=== PATIENT | female | born 1990 | race Caucasian/White ===

== ENCOUNTER → 2017-08-31 | Outpatient (CLI) | payer BC | END | disposition home or self-care (01) | LOC: LAB 11:25 → LAB SHORT 11:25 | DX: R07.0 Pain in throat (principal) | CPT/HCPCS: 87070 ==

== ENCOUNTER → 2018-05-11 | Outpatient (CLI) | payer BC ==
[2018-05-14 15:07] LABS: HPV 16 Negative (Negative); HPV 18 Negative (Negative); HPV OTHER HR TYPES Negative (Negative)
== END | disposition home or self-care (01) ==
LOC: LAB SHORT 11:49 → LAB 11:49
PROVIDERS: Nurse Practitioner Women's Health
DX: Z12.4 Encounter for screening for malignant neoplasm of cervix (principal)
CPT/HCPCS: 87624; G0123

== ENCOUNTER 2021-07-31 03:59 | Emergency (ER) | payer BC ==
[~2021-07-31] VITALS: Ht 149.9 cm; Wt 74.8 kg
[2021-07-31 04:24] LABS: BASOPHILS ABSOLUTE AUTO 0.03 K/mm3 (0.00-0.23); BASOPHILS PERCENT AUTO 0 % (0-2); EOSINOPHILS ABSOLUTE AUTO 0.01 K/mm3 (0.00-0.68); EOSINOPHILS PERCENT AUTO 0 % (0-6); Hematocrit 36.7 % (33.0-51.0); Hemoglobin 11.4 g/dL (11.5-16.0); IMMATURE GRAN ABSOLUTE AUTO 0.04 K/mm3 (0.00-0.10); IMMATURE GRAN PERCENT AUTO 0 % (0-1); LYMPHOCYTES ABSOLUTE AUTO 1.05 K/mm3 (0.84-5.20); LYMPHOCYTES PERCENT AUTO 11 % (21-46); MONOCYTES ABSOLUTE AUTO 0.34 K/mm3 (0.16-1.47); MONOCYTES PERCENT AUTO 4 % (4-13); Mean Corpuscular HGB 22.2 pg (26.0-34.0); Mean Corpuscular HGB Conc 31.1 g/dL (31.5-36.5); Mean Corpuscular Volume 71 fL (80-100); Mean Platelet Volume 8.7 fL (9.1-12.4); NEUTROPHILS ABSOLUTE AUTO 8.15 K/mm3 (1.96-9.15); NEUTROPHILS PERCENT AUTO 85 % (41-73); Platelet Count 549 K/mm3 (150-400); RDW Coefficient Variation 16.5 % (11.7-14.2); RDW Standard Deviation 42.5 fL (35.1-46.3); Red Blood Cell Count 5.14 M/mm3 (3.80-5.20); White Blood Cell Count 9.62 K/mm3 (4.00-11.30)
[2021-07-31 04:37] LABS: Albumin, Blood 4.4 g/dL (3.4-5.0); Albumin/Globulin Ratio 1.1 (0.8-1.8); Bilirubin, Total 0.4 mg/dL (0.1-1.0); Calcium, Blood 9.2 mg/dL (8.5-10.1); Creatinine, Blood 0.59 mg/dL (0.40-1.00); Globulin, Blood 4.1 g/dL (2.2-4.0); Total Protein, Blood 8.5 g/dL (6.4-8.2)
[2021-07-31] MEDS ORDERED: HYDROCODONE-AC1 EA11 PO (07:37)
[2021-07-31] MEDS ORDERED: PROM25 PO (07:37)
== END 2021-07-31 08:08 | disposition home or self-care (01) ==
LOC: ER 03:59
PROVIDERS: Emergency Medicine
DX: K50.012 Crohn's disease of small intestine with intestinal obstruction (principal)
CPT/HCPCS: 74176; 80053; 84703; 85025; J1170; J2405; J2550; J7030

== ENCOUNTER 2021-08-23 06:57 | Day surgery (SDC) | payer BC ==
[~2021-08-23 06:57] MED LIST: ESCI20 PO; HYDROCODONE-AC1 EA11 PO; IRON SUPPLEMENT; PROBIOTIC; PROM25 PO
--- NOTE | 2021-08-23 08:20 | NUR ---
08/23/21 0820 Lucie White History, Chart, Medications and Allergies reviewed before start of procedure. Patient confirms NPO status and agrees with scheduled surgery. 3-LEAD EKG REVIEWED WITH PHYSICIAN PRIOR TO START OF PROCEDURE. MONITOR INTACT WITH CONTINUOUS PULSE OXIMETRY AND INTERMITTENT BP. PATIENT DETERMINED TO BE ASA APPROPRIATE FOR PROPOFOL SEDATION PRIOR TO START OF PROCEDURE BY O2@ 3L N/C T/O PROCEDRE
--- NOTE | 2021-08-23 09:20 | NUR ---
Patient up to Ambulate independently. Gait steady. Discharge instructions reviewed with patient. Patient verbalizes understanding. Copy given to patient to take home. Patient States Post-Procedure ride home has been arranged. Discharged via wheelchair to private car for ride home.
== END 2021-08-23 23:52 | disposition home or self-care (01) ==
LOC: ORSCMMR 06:57 → ORD 08:00 → ORSCMMR 23:52
PROVIDERS: Internal Medicine Gastroenterology
PROC: 0DBE8ZX Excision of Large Intestine, Via Natural or Artificial Opening Endoscopic, Diagnostic (ICD-10-PCS; principal; 2021-08-23 08:00)
PROC: 0DBB8ZX Excision of Ileum, Via Natural or Artificial Opening Endoscopic, Diagnostic (ICD-10-PCS; principal; 2021-08-23 08:00)
DX: R10.31 Right lower quadrant pain (principal); Z87.19 Personal history of other diseases of the digestive system; F41.9 Anxiety disorder, unspecified; D50.9 Iron deficiency anemia, unspecified; Z79.899 Other long term (current) drug therapy
CPT/HCPCS: 88305; J2250; J2704; J7120

== ENCOUNTER 2021-12-19 07:10 | Observation (INO) | payer BC ==
[~2021-12-19] VITALS: Ht 149.9 cm; Wt 74.8 kg
[2021-12-19 08:23] LABS: Albumin, Blood 4.3 g/dL (3.4-5.0); Albumin/Globulin Ratio 1.1 (0.8-1.8); Bilirubin, Total 0.3 mg/dL (0.1-1.0); Bun/Creatinine Ratio 18.2 (12.0-20.0); Calcium, Blood 8.9 mg/dL (8.5-10.1); Creatinine, Blood 0.66 mg/dL (0.40-1.00); Globulin, Blood 3.9 g/dL (2.2-4.0); Potassium, Blood 3.7 mmol/L (3.5-5.5); Total Protein, Blood 8.2 g/dL (6.4-8.2)
[2021-12-19 08:39] LABS: BASOPHILS ABSOLUTE AUTO 0.03 K/mm3 (0.00-0.23); BASOPHILS PERCENT AUTO 0 % (0-2); EOSINOPHILS ABSOLUTE AUTO 0.04 K/mm3 (0.00-0.68); EOSINOPHILS PERCENT AUTO 0 % (0-6); Hematocrit 32.1 % (33.0-51.0); IMMATURE GRAN ABSOLUTE AUTO 0.03 K/mm3 (0.00-0.10); IMMATURE GRAN PERCENT AUTO 0 % (0-1); LYMPHOCYTES PERCENT AUTO 12 % (21-46); MONOCYTES ABSOLUTE AUTO 0.72 K/mm3 (0.16-1.47); MONOCYTES PERCENT AUTO 8 % (4-13); Mean Corpuscular HGB 22.8 pg (26.0-34.0); Mean Corpuscular HGB Conc 31.2 g/dL (31.5-36.5); Mean Corpuscular Volume 73 fL (80-100); NEUTROPHILS ABSOLUTE AUTO 7.49 K/mm3 (1.96-9.15); NEUTROPHILS PERCENT AUTO 80 % (41-73); Platelet Count 384 K/mm3 (150-400); RDW Coefficient Variation 15.7 % (11.7-14.2); RDW Standard Deviation 40.8 fL (35.1-46.3); Red Blood Cell Count 4.39 M/mm3 (3.80-5.20); White Blood Cell Count 9.41 K/mm3 (4.00-11.30)
[2021-12-19 08:41] LABS: Source, Urine Clean Catch
[2021-12-19 08:44] LABS: Appearance, Urine Clear (Clear); Bilirubin, Urine Neg (Neg); Blood, Urine Neg (Neg); Color, Urine Yellow (P-Yellow); Glucose Qualitative, Urine Neg (Neg); Ketones, Urine Neg (Neg); Leukocyte Esterase, Urine Neg (Neg); Nitrite, Urine Neg (Neg); Protein, Urine Neg (Neg); Specific Gravity, Urine 1.015 (1.003-1.022); Urobilinogen, Urine NORM (Normal)
--- NOTE | 2021-12-19 10:45 | NUR ---
PATIENT CAME FROM ER TODAY AT AROUND 0930. SHE IS A&OX4. VS ARE WNL AND IS ON RA. PATIENT REPORTS 8/10 ABD PAIN. IV DILAUDID HAS BEEN HELPING TO MANAGE THE PAIN. ABD IS TENDER TO TOUCH AND HAS HYPOACTIVE BOWEL TONES. SHE IS NPO AT THIS TIME. PATIENT IS VOIDING AND PASSING SMALL AMOUNTS OF GAS. CALLS APPROPRIATELY. CALL LIGHT WITHIN REACH.
--- NOTE | 2021-12-19 13:35 | NUR ---
PATIENT IS BEING TAKEN BACK TO THE OR AT THIS TIME.
--- NOTE | 2021-12-19 14:24 | NUR ---
12/19/21 1424 Fco Alonzo PT ON SCHEDULED ANTIBIOTICS
--- NOTE | 2021-12-19 15:55 | NUR ---
PATIENT CAME BACK FROM PACU TODAY AT 1530. POD 0 LAP JAREN PATIENT IS A&OX4. VS ARE WNL AND IS ON RA. PATIENT REPORTS DISCOMFORT WITH MOVEMENT BUT REFUSES PAIN MEDICATIONS AT THIS TIME. HER ABD HAS 4 LAP SITES WITH STERI STRIPS THAT ARE C/D/I. SHE IS TOLERATING SMALL SIPS OF WATER AT THIS TIME. ABD IS SOFT BUT TENDER TO TOUCH. DENIES NAUSEA/VOMITING AT THIS TIME. IS AT BEDSIDE. HARD PERSCRIPTION WAS GIVEN TO TO FILL OUT LATER. CALL LIGHT WITHIN REACH. PATIENT IS LAYING IN BED WITH EYES CLOSED.
[2021-12-19] MEDS ORDERED: OXYC10TA19 PO (17:14)
--- NOTE | 2021-12-19 17:30 | NUR ---
DISCHARGE NOTE: PATIENT AND PATIENTS WERE EDUCATED ON DISCHARGE INSTRUCTIONS. BOTH VERBALIZED UNDERSTANDING OF INSTRUCTIONS AND HAD NO FURTHER QUESTIONS. PAIN IS MANAGED WITH PO PAIN MEDICATIONS. IV WAS TAKEN OUT AND WNL. HER 4 LAP SITES ON HER ABD HAD STERI STRIPS THAT ARE C/D/I. SHE IS TOLERATING PO INTAKE AND IS VOIDING/PASSING GAS. BOWEL TONES ARE ACTIVE. DENIES ANY NAUSEA OR VOMITING. SHE IS DRESSED AND HAS ITEMS IN THE ROOM GATHERED. SHE REFUSED TO BE WHEELCHAIRED OUT AND IS INSTEAD WALKING WITH HER TO HER HUSBANDS CAR TO BE TAKEN HOME.
== END 2021-12-19 17:33 | disposition home or self-care (01) ==
LOC: ER 07:10 → SURS 07:11
PROVIDERS: Emergency Medicine; ADMIT Surgery
PROC: 0FT44ZZ Resection of Gallbladder, Percutaneous Endoscopic Approach (ICD-10-PCS; principal; 2021-12-19 14:30)
DX: K80.12 Calculus of gallbladder with acute and chronic cholecystitis without obstruction (principal)
CPT/HCPCS: 76705; 80053; 81003; 81025; 83690; 85025; 88304; 96361; 96365; 96375; 99285-25; A9270; G0378; J1100; J1170; J1885; J2250; J2270; J2405; J2543; J2550; J2704; J2710; J2765; J2795; J3010; J7030; J7120

== ENCOUNTER 2022-02-01 18:19 | Inpatient (IN) | payer BC ==
[~2022-02-01] VITALS: Ht 149.9 cm; Wt 75.3 kg
[~2022-02-01 18:19] MED LIST changes: +OXYC10TA19 PO
[2022-02-01 19:23] LABS: BASOPHILS ABSOLUTE AUTO 0.02 K/mm3 (0.00-0.23); BASOPHILS PERCENT AUTO 0 % (0-2); EOSINOPHILS ABSOLUTE AUTO 0.05 K/mm3 (0.00-0.68); EOSINOPHILS PERCENT AUTO 0 % (0-6); Hematocrit 36.4 % (33.0-51.0); Hemoglobin 11.6 g/dL (11.5-16.0); IMMATURE GRAN ABSOLUTE AUTO 0.04 K/mm3 (0.00-0.10); IMMATURE GRAN PERCENT AUTO 0 % (0-1); LYMPHOCYTES ABSOLUTE AUTO 1.69 K/mm3 (0.84-5.20); LYMPHOCYTES PERCENT AUTO 15 % (21-46); MONOCYTES ABSOLUTE AUTO 0.68 K/mm3 (0.16-1.47); MONOCYTES PERCENT AUTO 6 % (4-13); Mean Corpuscular HGB 23.1 pg (26.0-34.0); Mean Corpuscular HGB Conc 31.9 g/dL (31.5-36.5); Mean Corpuscular Volume 72 fL (80-100); Mean Platelet Volume 8.9 fL (9.1-12.4); NEUTROPHILS ABSOLUTE AUTO 9.16 K/mm3 (1.96-9.15); NEUTROPHILS PERCENT AUTO 79 % (41-73); Platelet Count 505 K/mm3 (150-400); RDW Coefficient Variation 16.1 % (11.7-14.2); RDW Standard Deviation 41.1 fL (35.1-46.3); Red Blood Cell Count 5.03 M/mm3 (3.80-5.20); White Blood Cell Count 11.64 K/mm3 (4.00-11.30)
[2022-02-01 19:38] LABS: Albumin, Blood 4.3 g/dL (3.4-5.0); Bilirubin, Total 0.3 mg/dL (0.1-1.0); Bun/Creatinine Ratio 22.3 (12.0-20.0); Calcium, Blood 9.3 mg/dL (8.5-10.1); Creatinine, Blood 0.58 mg/dL (0.40-1.00); Globulin, Blood 4.3 g/dL (2.2-4.0); Potassium, Blood 3.9 mmol/L (3.5-5.5); Total Protein, Blood 8.6 g/dL (6.4-8.2)
[2022-02-01 20:15] LABS: Source, Urine Clean Catch
[2022-02-01 20:25] LABS: Appearance, Urine Clear (Clear); Bilirubin, Urine Neg (Neg); Blood, Urine 2+ (Neg); Color, Urine Yellow (P-Yellow); Glucose Qualitative, Urine Neg (Neg); Ketones, Urine 2+ (Neg); Leukocyte Esterase, Urine 1+ (Neg); Nitrite, Urine Neg (Neg); Protein, Urine Neg (Neg); Urobilinogen, Urine NORM (Normal)
[2022-02-01 20:33] LABS: Red Blood Cells, Urine 0-2 /hpf (0-2)
[2022-02-01 20:34] LABS: Bacteria Mod /hpf; Squamous Epithelial Cells Few /hpf (Few)
[2022-02-01 23:24] LABS: Influenza A, PCR NEGATIVE (NEGATIVE); Influenza B, PCR NEGATIVE (NEGATIVE); Resp Syncytial Virus, PCR NEGATIVE (NEGATIVE); SARS-Cov-2 (COVID-19) PCR, MMC NEGATIVE (NEGATIVE)
[2022-02-02 05:32] LABS: BASOPHILS ABSOLUTE AUTO 0.02 K/mm3 (0.00-0.23); BASOPHILS PERCENT AUTO 0 % (0-2); EOSINOPHILS PERCENT AUTO 0 % (0-6); Hematocrit 37.2 % (33.0-51.0); Hemoglobin 11.3 g/dL (11.5-16.0); IMMATURE GRAN ABSOLUTE AUTO 0.03 K/mm3 (0.00-0.10); IMMATURE GRAN PERCENT AUTO 0 % (0-1); LYMPHOCYTES ABSOLUTE AUTO 0.84 K/mm3 (0.84-5.20); LYMPHOCYTES PERCENT AUTO 8 % (21-46); MONOCYTES ABSOLUTE AUTO 0.42 K/mm3 (0.16-1.47); MONOCYTES PERCENT AUTO 4 % (4-13); Mean Corpuscular HGB 22.3 pg (26.0-34.0); Mean Corpuscular HGB Conc 30.4 g/dL (31.5-36.5); Mean Corpuscular Volume 74 fL (80-100); Mean Platelet Volume 8.8 fL (9.1-12.4); NEUTROPHILS ABSOLUTE AUTO 8.75 K/mm3 (1.96-9.15); NEUTROPHILS PERCENT AUTO 87 % (41-73); Platelet Count 463 K/mm3 (150-400); RDW Coefficient Variation 16.2 % (11.7-14.2); RDW Standard Deviation 42.6 fL (35.1-46.3); Red Blood Cell Count 5.06 M/mm3 (3.80-5.20); White Blood Cell Count 10.06 K/mm3 (4.00-11.30)
[2022-02-02 05:59] LABS: Albumin, Blood 3.9 g/dL (3.4-5.0); Bilirubin, Total 0.3 mg/dL (0.1-1.0); Bun/Creatinine Ratio 16.5 (12.0-20.0); Calcium, Blood 8.2 mg/dL (8.5-10.1); Creatinine, Blood 0.55 mg/dL (0.40-1.00); Potassium, Blood 3.7 mmol/L (3.5-5.5); Total Protein, Blood 7.9 g/dL (6.4-8.2)
--- NOTE | 2022-02-02 06:37 | NUR ---
SHIFT SUMMARY PT ADMITTED FOR SBO- PT A&O X 4- MEDICATED WITH FENTANYL 25MG X1- APPLIED OXYGEN AND ELECTROMECHANICAL EQUIPMENT ASSEMBLER- NS INFUSING PER ORDER- PT'S AT BEDSIDE - PT INDEPENDENT- DR. TERRELL NG IF PATIENT WAS UNCOMFORTABLE AND WANTED PLACED- PT REFUSES AT THIS TIME- CALL LIGHT IN REACH
--- NOTE | 2022-02-02 13:06 | NUR ---
DR. HARRISON IN TO SEE PT PLAN TO ADVANCE TO CLEAR LIQUID DIET TOLERATED PT STATES SHE IS FEELING BETTER, IF TOLERATES PLAN FOR DC TOMORROW-IF DOES NOT TOLERATE PLAN FOR NPO @ MIDNIGHT FOR SURG REPAIR TOMORROW.
--- NOTE | 2022-02-02 18:19 | NUR ---
SHIFT SUMMARY PT A&OX4 AND IN PLEASENT MOOD T/O SHIFT. SPOUSE @ BEDSIDE. PT REPORTS PASSING GAS AND "FEELING BETTER". PT PLANS TO AMBULATE. TOLERATING CL DIET @ THIS TIME-DENIES N/V. MIN PAIN NOTED. VSS. CALL LIGHT W/IN REACH.
--- NOTE | 2022-02-03 05:43 | NUR ---
SHIFT SUMMARY PT A&O X4- JONATAN AT BEDSIDE- NO C/O OF NAUSEA T/O NIGHT- PAIN IN RIGHT ABDOMEN TOLERABLE- PT REPORTS PASSING GAS- PT WAS ADVANCED TO CLEARS 02/02/22 AFTERNOON AND HAS TOLERATED WELL- PLAN IS FOR PT TO BE D/C TODAY
[2022-02-03 06:02] LABS: Bun/Creatinine Ratio 11.5 (12.0-20.0); Calcium, Blood 8.1 mg/dL (8.5-10.1); Creatinine, Blood 0.61 mg/dL (0.40-1.00); Magnesium, Blood 2.2 mg/dL (1.6-2.4); Potassium, Blood 3.8 mmol/L (3.5-5.5)
--- NOTE | 2022-02-03 10:59 | NUR ---
Patient AOx4, denies pain/discomfort in abd. Bowel tones active all quadrants. Patient tolerating liquid diet, per MD advance diet as tolerated. Surgeon called for update, stated patient ready for discharge, and instruct pt to call MD's office next week for f/u. MD ordered discharge, pt verbalized understanding of patient education. removed IV. Patient left medical unit at 1030.
== END 2022-02-03 10:43 | disposition home or self-care (01) | DRG 390 ==
LOC: ER 18:19 → MEDS 02-02 00:18
PROVIDERS: Emergency Medicine; Student in an Organized Health Care Education/Training Program; ADMIT Internal Medicine
DX: K56.609 Unspecified intestinal obstruction, unspecified as to partial versus complete obstruction (principal); Z20.822 Contact with and (suspected) exposure to COVID-19; Z90.49 Acquired absence of other specified parts of digestive tract; Z98.890 Other specified postprocedural states; Z79.891 Long term (current) use of opiate analgesic; Z79.899 Other long term (current) drug therapy
CPT/HCPCS: 0241U; 36415; 74177; 80048; 80053; 81001; 81025; 82947; 83690; 83735; 85025; 87086; 94762; G0378; J1170; J2405; J2765; J3010; J7030; Q9967

== ENCOUNTER 2022-04-26 00:37 | Inpatient (IN) | payer BC ==
[~2022-04-26] VITALS: Ht 149.9 cm; Wt 76.7 kg
[2022-04-26 01:35] LABS: BASOPHILS ABSOLUTE AUTO 0.05 K/mm3 (0.00-0.23); BASOPHILS PERCENT AUTO 1 % (0-2); EOSINOPHILS ABSOLUTE AUTO 0.07 K/mm3 (0.00-0.68); EOSINOPHILS PERCENT AUTO 1 % (0-6); Hematocrit 39.2 % (33.0-51.0); IMMATURE GRAN ABSOLUTE AUTO 0.03 K/mm3 (0.00-0.10); IMMATURE GRAN PERCENT AUTO 0 % (0-1); LYMPHOCYTES ABSOLUTE AUTO 1.65 K/mm3 (0.84-5.20); LYMPHOCYTES PERCENT AUTO 16 % (21-46); MONOCYTES ABSOLUTE AUTO 0.93 K/mm3 (0.16-1.47); MONOCYTES PERCENT AUTO 9 % (4-13); Mean Corpuscular HGB 24.8 pg (26.0-34.0); Mean Corpuscular HGB Conc 33.2 g/dL (31.5-36.5); Mean Corpuscular Volume 75 fL (80-100); Mean Platelet Volume 9.2 fL (9.1-12.4); NEUTROPHILS ABSOLUTE AUTO 7.83 K/mm3 (1.96-9.15); NEUTROPHILS PERCENT AUTO 74 % (41-73); Platelet Count 448 K/mm3 (150-400); RDW Coefficient Variation 16.6 % (11.7-14.2); RDW Standard Deviation 44.5 fL (35.1-46.3); Red Blood Cell Count 5.24 M/mm3 (3.80-5.20); White Blood Cell Count 10.56 K/mm3 (4.00-11.30)
[2022-04-26] MEDS ORDERED: ESCI20 PO (01:45)
[2022-04-26 01:54] LABS: Magnesium, Blood 1.8 mg/dL (1.6-2.4)
[2022-04-26 02:00] LABS: Alanine Aminotransfer (ALT/SGP 24 U/L (12-78); Albumin, Blood 4.1 g/dL (3.4-5.0); Albumin/Globulin Ratio 0.9 (0.8-1.8); Alk Phos 58 U/L (50-136); Anion Gap 8 mmol/L (6-16); Aspartate Aminotrans (AST/SGOT 18 U/L (12-37); Bilirubin, Direct <0.1 mg/dL (0.0-0.3); Bilirubin, Indirect Unable to Calculate mg/dL (0.1-0.7); Bilirubin, Total 0.4 mg/dL (0.1-1.0); Blood Urea Nitrogen 11 mg/dL (8-24); Bun/Creatinine Ratio 15.6 (12.0-20.0); CO2, Blood 24 mmol/L (21-32); Calcium, Blood 9.5 mg/dL (8.5-10.1); Chloride, Blood 106 mmol/L (98-108); Creatinine, Blood 0.71 mg/dL (0.40-1.00); Globulin, Blood 4.5 g/dL (2.2-4.0); Glomerular Filtration Rate 116 (60-); Glucose, Blood 125 mg/dL (70-99); Potassium, Blood 3.3 mmol/L (3.5-5.5); Sodium, Blood 138 mmol/L (136-145); Total Protein, Blood 8.6 g/dL (6.4-8.2)
[2022-04-26 02:19] LABS: Influenza A, PCR NEGATIVE (NEGATIVE); Influenza B, PCR NEGATIVE (NEGATIVE); Resp Syncytial Virus, PCR NEGATIVE (NEGATIVE); SARS-Cov-2 (COVID-19) PCR, MMC NEGATIVE (NEGATIVE)
--- NOTE | 2022-04-26 06:17 | NUR ---
0450: PT ARRIVED FROM ER VIA WHEELCHAIR WITH NG TUBE IN PLACED. NG TUBE TO SUCTION AT LIS. PT REPORTS FEELING ANXIOUS HAVING NG TUBE ON HER. REPORTS 1/10 PAIN LEVEL. AOX4. DENIES N/V. BT PRESENT/ACTIVE. REPORTS BM 04/25/22. LAST EMESIS WAS 02/22/23 MIDNIGHT AT HOME, YELLOW COLOR. DENIES VOMITING SINCE THEN BUT FEELING NAUSEATED. PT 1 MIN ASSIST WITH TUBES. VOIDING. SURG PREP DONE. IV FLUIDS INFUSING. VSS. REORIENT IN ROOM. 0620: PT REPORTS NAUSEA AND PAIN 5/10. PAIN MANAGED WITH DILAUDID AND ZOFRAN FOR NAUSEA. PT ALSO APPEARS VERY ANXIOUS AT THIS TIME. OFFERED WASH CLOTH AND FAN. ENC TO TAKE SLOW DEEP BREATHS. CALL LIGHT WITHIN REACH. WILL PROVIDE REPORT TO ONCOMING NURSE
--- NOTE | 2022-04-26 07:14 | NUR ---
0645: PT HYPERVENTILATING, FEELING CLAUSTROPHOBIC WITH THE NG TUBE. REPORTS INCREASE NAUSEA DENIES PAIN. SMALL AMT YELLOW EMESIS. NOTIFIED DR. HARRISON. SEE NURSE NOTIFY FOR ORDER AND EMR. 0710: NG TUBE TAKEN OUT. PT TOLERATE IT WELL. ATIVAN 1MG GIVEN VIA IV. PT REPORTS SOME RELIEF. CALL LIGHT WITHIN REACH. WILL CONTINUE TO MONITOR AND NOTIFIED MARTA TENA.
--- NOTE | 2022-04-26 11:22 | NUR ---
PT TO SURGERY
--- NOTE | 2022-04-26 11:44 | NUR ---
History, Chart, Medications and Allergies reviewed before start of procedure. Lungs clear T/O to Auscultation. Patient confirms NPO status and agrees with scheduled surgery. Pre-Op teaching done. Pt verbalizes understanding. Surgical site prepped with 2% Chlorhexidine cloth wipe.
--- NOTE | 2022-04-26 11:54 | NUR ---
REPORT TO RAMANDEEP TENA.
--- NOTE | 2022-04-26 13:03 | NUR ---
MEDICATED WITH ZOFRAN FOR C/O NAUSEA. NO EMESIS.
--- NOTE | 2022-04-26 13:17 | NUR ---
PATIENT STATES HER NAUSEA IS IMPROVED POST-ANTIEMETIC, AND NO LONGER FEELS THE URGE TO VOMIT.
--- NOTE | 2022-04-26 14:55 | NUR ---
04/26/22 7572 Katrin Alvarez MINI LAP OPENED AT 1445
--- NOTE | 2022-04-26 17:46 | NUR ---
SUMMARY PT RETURNED TO UNIT FROM PACU AT APPROX 1700. TRANSFERRED PT FROM [facility] TO BED. PT REPORTS PAIN TOLERABLE. DENIED NAUSEA OR SOB. VSS. 02 SATS STABLE ON 2L NC. MIDLINE INCISION TO ABD W/JC. SCANT SANG DRAINAGE NOTED; COMPRESSED. IV FLUIDS INFUSING. SPOUSE AT BEDSIDE. CALL LIGHT IN REACH.
--- NOTE | 2022-04-26 18:32 | NUR ---
PT TALKING ON PHONE. DENIES ANY NEEDS. CALL LIGHT IN REACH.
--- NOTE | 2022-04-27 05:52 | NUR ---
Patient able to walk with minimal assistance. x1 Hurst given for pain. Slept well. Tolerating P.O well. JC dressing intact and compressed. Scant sang dried blood noted. Bowel sounds hypoactive. No questions or concerns at this time.
--- NOTE | 2022-04-27 16:28 | NUR ---
SHIFT SUMMARY POD 1 SMALL BOWEL RESECTION. PT HAS BEEN TOLERATING DIET WELL, DENIES NAUSEA. PAIN MANAGED WITH BINDER. PT AMBULATING FREQUENTLY. DENIES FLATUS, BUT REPORTS "INCREASED BOWEL ACTIVITY" MIDLINE PICCO REMAINS UNCHANGED. PT IND IN ROOM, CALLS APPROPRIATLY. PLAN IS TO CONTINUE AWAITING RETURN OF BOWEL FUNCTION.
--- NOTE | 2022-04-28 06:32 | NUR ---
Patient slept well overnight, up and out of bed to bathroom with minimal assistance. Menstral cycle started. PRN Torodal given. Denies any nausea or vomittig at this time. Patient encouraged to increase P.O fluid intake. JC dressing intact and compressed, no change from earliar. No questions or concerns at this time.
[2022-04-28] MEDS ORDERED: Norco 5-325 Ta1 EACH PO (12:21)
--- NOTE | 2022-04-28 13:04 | NUR ---
DISCHARGE SUMMARY PATIENT ALERT AND ORIENTED. TOLERATING FULL LIQUID DIET AND ORAL FLUIDS. VOIDING WELL. PASSING GAS, ABD SOFT AND TENDER. PAIN CONTROLLED WITH PO PAIN MEDS. MIDLINE JC C/D/I. DISCHARGE ORDERS GIVEN BY DR HARRISON. DISCHARGE EDUCATION GIVEN ON ACTIVITY LEVEL, INCISION CARE, DIET, NEW RX, AND FOLLOW UP APPTS. IV DC'D WNL. PATIENT LEFT UNIT AT 1255 VIA WHEELCHAIR WITH SPOUSE FOR HOME.
== END 2022-04-28 12:54 | disposition home or self-care (01) | DRG 331 ==
LOC: ER 00:37 → SURS 00:38
PROVIDERS: Student in an Organized Health Care Education/Training Program; ADMIT Surgery
PROC: 0DH67UZ Insertion of Feeding Device into Stomach, Via Natural or Artificial Opening (ICD-10-PCS; 2022-04-26)
PROC: 0DJD0ZZ Inspection of Lower Intestinal Tract, Open Approach (ICD-10-PCS; principal; 2022-04-26 13:30)
PROC: 0DB84ZZ Excision of Small Intestine, Percutaneous Endoscopic Approach (ICD-10-PCS; 2022-04-26 13:30)
DX: K56.609 Unspecified intestinal obstruction, unspecified as to partial versus complete obstruction (principal); F41.9 Anxiety disorder, unspecified; E87.6 Hypokalemia; D64.9 Anemia, unspecified; R59.0 Localized enlarged lymph nodes; Z20.822 Contact with and (suspected) exposure to COVID-19; Z98.890 Other specified postprocedural states; Z90.49 Acquired absence of other specified parts of digestive tract; Z87.19 Personal history of other diseases of the digestive system; Z79.899 Other long term (current) drug therapy
CPT/HCPCS: 0241U; 36415; 71045; 74177; 80048; 80076; 81025; 83690; 83735; 85025; 93005; 93010; 94760; 96374-59; 96375; 96376; 99285-25; A9270; G0378; J0690; J1100; J1170; J1885; J2060; J2250; J2270; J2405; J2704; J3010; J3480; J7030; J7120; Q9967

== ENCOUNTER → 2024-12-12 | Outpatient (CLI) | payer BC ==
[~2024-12-12] MED LIST changes: +Norco 5-325 Ta1 EACH PO
== END | disposition home or self-care (01) ==
LOC: LAB SHORT 12:52 → LAB 12:52
DX: R30.0 Dysuria (principal)
CPT/HCPCS: 87077; 87086; 87186